=== PATIENT | male | born 1990 | race Caucasian/White ===

== ENCOUNTER 2020-04-30 14:49 | Emergency (ER) | payer OTHER, SELFPAY ==
--- NOTE | 2020-04-30 14:54 | ED.URI ---
HPI - URI/Sore Throat General Chief Complaint: Upper Respiratory Infection Stated Complaint: Cold/Flu Time Seen by Provider: 04/30/20 14:55 Source: patient and RN notes reviewed History of Present Illness HPI Narrative: Patient is a 29-year-old male who presents the urgent care with complaints of 3-day history of sore throat and subjective fever. Patient states he is now having a headache and fatigue. Reports of a slight nonproductive cough without any shortness of breath. Patient states that he is a manufacturing shift supervisor at [employer] and has been working as normal. States that his work sent him here for a checkup . Patient denies of any known exposure to Covid, strep or flu. Patient denies of any diarrhea, nausea or vomiting. No other acute complaints. No acute distress noted. Patient aware of the plan of care. Some parts of this dictation were generated by voice recognition software and may contain typographical and/or grammatical inaccuracies. Related Data Allergies Allergy/AdvReac Type Severity Reaction Status Date / Time No Known Allergies Allergy Verified 04/30/20 15:09 Review of Systems Review of Systems: Narrative: CONSTITUTIONAL: Reports of subjective fever and fatigue EYES: Denies visual changes, redness, or discharge. ENT: Reports of sore throat, drainage CARDIOVASCULAR: Denies chest pain, palpitations, or edema. RESPIRATORY: Reports a mild nonproductive cough without dyspnea GASTROINTESTINAL: Denies abdominal pain, nausea, vomiting, or diarrhea. GENITOURINARY: Denies dysuria or hematuria. SKIN: Denies rash or itching. MUSCULOSKELETAL: Denies back pain, joint pain. Reports of body aches NEUROLOGIC: Denies headache, numbness, or weakness. All other systems reviewed are negative, except as documented in HPI. PMFSH Comments At the time of my signature, I reviewed and agree with the nursing past medical, surgical, social, and family history. There is no relevant family history pertinent to the patient complaint. Exam Narrative: Exam Narrative: GENERAL: This is a well-nourished, well-developed patient, in no apparent distress. Poor hygiene HEAD: normocephalic, atraumatic. EYES: PERRL. Sclera clear/white. Vision is grossly intact. EARS: External ears normal, auditory canals clear and without drainage, bilateral cerumen, TMs normal without perforation. Hearing grossly intact. NOSE: External nose normal with no obvious nasal discharge, nares without redness, no rhinorrhea. THROAT: Mucous membranes moist, mild erythema noted to posterior oropharynx without tonsillar edema or erythema. No notable exudate. Moderate postnasal drainage. DENTAL: Poor oral health/dentition with notable carious lesions NECK: Neck supple, non-tender without lymphadenopathy CARDIOVASCULAR: Regular rate and rhythm without murmurs, gallops, or rubs. RESPIRATORY: Clear to auscultation. Breath sounds equal bilaterally. No wheezes, rales, or rhonchi. SKIN: warm, intact with no suspicious lesions or rash, good texture and turgor. NEURO: awake, alert, and oriented to person, place and time. There were no obvious focal neurologic abnormalities. EXTREMITIES: No clubbing, cyanosis, or edema. Course Vital Signs Vital signs: Vital Signs Temperature 97 F L 04/30/20 14:58 Pulse Rate 94 04/30/20 14:58 Respiratory Rate 20 04/30/20 14:58 Blood Pressure 139/99 H 04/30/20 14:58 Pulse Oximetry 98 04/30/20 14:58 Temperature 97 F L 04/30/20 15:09 Pulse Rate 94 04/30/20 15:09 Respiratory Rate 20 04/30/20 15:09 Blood Pressure 139/99 H 04/30/20 15:09 Pulse Oximetry 98 04/30/20 15:09 Reviewed-patient is informed that they may have pre-hypertension or hypertension based on a blood pressure reading in the department. I recommend the patient call the primary care provider listed on their discharge instructions or a physician of their choice this week to arrange follow-up for further evaluation of possible pre-hypertension or hypertension.
[2020-04-30 14:58] VITALS: BP 139/99; PULSE 94; RESP 20; TEMP 36.1; O2SAT 98
[2020-04-30 15:09] VITALS: BP 139/99; PULSE 94; RESP 20; TEMP 36.1; O2SAT 98
== END 2020-04-30 15:32 | disposition home or self-care (01) ==
PROVIDERS: Emergency Provider Nurse Practitioner Family
DX: J02.0 Streptococcal pharyngitis (principal)
CPT/HCPCS: 87804; 87880; 99213; G0463